=== PATIENT | female | born 1985 | race Caucasian/White ===

== ENCOUNTER → 2016-03-07 | Outpatient (CLI) | payer OTHER ==
[2016-03-07 16:12] LABS: CH 29.7; CHCM 34.5; HCT 35.7 % (34.0-46.0); HDW 2.67; HGB 12.1 gm/dL (11.4-16.0); MCH 29.2 pg (25.0-35.0); MCHC 33.8 g/dL (31.0-37.0); MCV 86.6 fL (80.0-100.0); Mean Platelet Volume 7.3; RBC 4.12 m/uL (3.80-5.40); RDW 13.1 % (11.5-15.5); WBC 9.7 k/uL (3.8-10.6)
[2016-03-07 16:41] LABS: Glucose 97 mg/dL (74-99); Non-African American GFR(MDRD) >60 (>60 ml/min/1.73 sqM)
[2016-03-07 17:15] LABS: Hepatitis B Surface Ag Index 0.07
[2016-03-08 07:34] LABS: HIV-1/HIV-2 Ab Screen NONREAC (NON REAC)
== END | disposition home or self-care (01) ==
LOC: LABWHC1 15:53
PROVIDERS: ATTEND Obstetrics & Gynecology
DX: O26.811 Pregnancy related exhaustion and fatigue, first trimester (principal); Z3A.00 Weeks of gestation of pregnancy not specified
CPT/HCPCS: 36415; 82565; 82947; 84443; 85027; 86762; 86780; 86850; 86870; 86880; 86886; 86900; 86901; 87340; 87389

== ENCOUNTER → 2016-05-29 | Outpatient (CLI) | payer OTHER ==
[2016-05-29 16:42] LABS: CH 29.3; CHCM 33.4; HDW 2.64; HGB 11.5 gm/dL (11.4-16.0); MCH 29.7 pg (25.0-35.0); MCHC 33.7 g/dL (31.0-37.0); MCV 88.2 fL (80.0-100.0); Mean Platelet Volume 7.1; RBC 3.86 m/uL (3.80-5.40); RDW 13.3 % (11.5-15.5); WBC 10.7 k/uL (3.8-10.6)
== END | disposition home or self-care (01) ==
LOC: LABWHC1 15:35
PROVIDERS: ATTEND Obstetrics & Gynecology
DX: Z34.82 Encounter for supervision of other normal pregnancy, second trimester (principal); Z3A.00 Weeks of gestation of pregnancy not specified
CPT/HCPCS: 36415; 82950; 84439; 84443; 85027

== ENCOUNTER 2016-07-18 16:33 | Outpatient (CLI) | payer OTHER | END 2016-07-18 18:00 | disposition home or self-care (01) | LOC: FBPOP 16:33 | PROVIDERS: ATTEND Obstetrics & Gynecology | DX: O26.93 Pregnancy related conditions, unspecified, third trimester (principal); Z3A.32 32 weeks gestation of pregnancy | CPT/HCPCS: 59025 ==

== ENCOUNTER 2016-07-23 11:18 | Outpatient (CLI) | payer OTHER ==
[2016-07-23 12:09] VITALS: BP 128/57; PULSE 129; RESP 20; TEMP 100.2
[2016-07-23 13:12] LABS: Appearance,Urine Cloudy (Clear); Bacteria,Urine Few /hpf; Bilirubin,Urine Negative (Negative); Glucose,Urine (UA) Negative (Negative); Ketones,Urine 1+ (Negative); Leukocyte Esterase,Urine Small (Negative); Mucus,Urine Rare /hpf; Nitrite,Urine Positive (Negative); PH, Urine 5.5 (5.0-8.0); Particle Count 57926; Protein,Urine Trace (Negative); RBC,Urine 3 /hpf (0-5); Squamous Epithelial Cell,Urine 1 /hpf (0-4); UA Billing (MACRO vs. MICRO) MICRO; Urobilinogen,Urine <2.0 mg/dL (<2.0); WBC,Urine 12 /hpf (0-5)
[2016-07-23] MEDS ORDERED: ceFAZolin 2 GM in SODIUM CHLORIDE 0.9% 100 ML IVPB STA (13:38)
[2016-07-23] MEDS ORDERED: LACTATED RINGERS 1,000 ML IV SCH (13:45)
--- NOTE | 2016-07-24 08:11 | P.MSEPDOC ---
Presenting Problems - Arrival Data Date of Arrival on Unit: 07/23/16 Time of Arrival on Unit: 11:18 Mode of Transport: Ambulatory - Complaint OB-Reason for Admission/Chief Complaint: Possible Onset of Labor Comment: back pain history of ms since 2007 Medical History - Information : 4 Para: 3 Term: 3 : 0 Abortions: Spontaneous or Elective: 0 Number of Living Children: 3 - Gestational Age Expected Date of Delivery: 09/08/16 Gestational Age by ROSIBEL (wks/days): 33 Weeks and 3 Days - History Complications: Prior , Smoker Review of Systems - Review of Systems Constitutional: No problems Breast: No problems ENT: No problems Cardiovascular: No problems Respiratory: No problems Gastrointestinal: No problems Genitourinary: No problems Musculoskeletal: Muscle weakness Neurological: No problems Skin: No problems Comment: History of MS since 2007, Surgery lt knee for torn meniscus, asthma Vital Signs - Temperature Temperature: 100.2 F Temperature Source: Skin - Pulse Brachial Pulse Rate: 129 Pulse Assessment Method: Automatic Cuff - Respirations Respiratory Rate: 20 Oxygen Delivery Method: Room Air - Blood Pressure Right Arm Blood Pressure: 128/57 Blood Pressure Mean: 80 Blood Pressure Source: Automatic Cuff Medical Screen Scoring (Pre) - Assessment Baseline FHR: 150 Heart Rate - NICHD Category: Category I (Normal) = 0 Position: N/A Station: N/A - Total Score Total Score (Pre): 0 Physician Notification (Pre) - Physician Notified Physician Notified Date: 07/23/16 Physician Notified Time: 11:45 Physician/Practitioner Notifed:: dr ferrer Spoke With: dr ferrer New Order Received: Yes (ua and c&s) Medical Screen Scoring (Post) - Cervical Exam Dilation: 0 cm = 0 Membranes: Intact - Uterine Contractions Frequency: N/A Duration: N/A Intensity: N/A - Maternal Vital Signs Maternal Temperature: N/A Maternal Blood Pressure: N/A Signs of Preeclampsia: N/A Maternal Respirations: N/A - Maternal Trauma Maternal Trauma: N/A - Assessment Heart Rate: 130 Heart Rate - NICHD Category: Category I (Normal) = 0 - Total Score Total Score (Post): 0 - Post Treatment Level of Risk Post Treatment Level of Risk: Low (0-5) Physician Notification (Post) - Physician Notified Physician Notified Date: 07/23/16 Physician Notified Time: 13:35 Physician/Practitioner Notified:: dr ferrer Spoke With: dr ferrer New Order Received: Yes - Notification Comment Comment: Dr ferrer given results of UA and iv ordered and kefzol ordered. May be discharged home after antibiotic is infused Disposition - Disposition OB Disposition: Triage, Discharge to home, Written follow up instructions reviewed Discharge Date: 07/23/16 Discharge Time: 15:30 I agree with the RN Medical Screening Exam: Yes Risk & Benefit of care provided described in d/c instruction: Yes Diagnosis: URINARY TRACT INFECTION, SITE NOT SPECIFIED Additional Diagnoses: Back pain
== END 2016-07-23 15:30 | disposition home or self-care (01) ==
LOC: FBPOP 11:18
PROVIDERS: ATTEND Obstetrics & Gynecology
DX: O23.43 Unspecified infection of urinary tract in pregnancy, third trimester (principal); Z3A.33 33 weeks gestation of pregnancy
CPT/HCPCS: 59025; 96361; 96365; 81001; 87086; G0463; J0690; 87077; 87186; 99214

== ENCOUNTER 2016-07-24 16:51 | Inpatient (IN) | payer OTHER ==
[2016-07-24] MEDS ORDERED: ACETAMINOPHEN TAB 500 MG TAB PO STA (17:24)
[2016-07-24] MEDS ORDERED: SODIUM CHLORIDE 0.9% 1,000 ML IV STA (17:24)
--- NOTE | 2016-07-24 17:30 | ED ---
Recheck HPI - General Chief Complaint: Recheck/Abnormal Lab/Rx Stated Complaint: Abd Pain-33 wk preg Time Seen by Provider: 07/24/16 17:17 Source: patient, RN notes reviewed Mode of arrival: wheelchair Limitations: no limitations - History of Present Illness Initial Comments: 31-year-old female presents emergency Department template primary care physician 's office for UTI tachycardia. Patient was seen at labor and delivery yesterday for back pain possible rule out labor. Patient states that she was up there for 4+ hours in which she had irregular contractions with no dilation. Patient states that she is A0 and currently 33 weeks . 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 Rivera. Patient states that she was given IV antibiotics yesterday and prescription for Keflex that she started today. She states that she follow up with primary care physician who sent her back here for further evaluation. Patient has not taken any acetaminophen for her fever. Patient denies any dysuria, hematuria or any flank pain with states that she does have back pain and also a reason that she was seen at upstairs yesterday. Patient has no abdominal pain no abdominal cramping. She states she feels baby moving and is very active. Patient states that she has no cold like symptoms. - Related Data Home Medications Medication Instructions Recorded Confirmed Albuterol Inhaler [Ventolin Hfa 1 - 2 puff INHALATION RT-Q6H PRN 12/08/15 Inhaler] Pnv with Ca,No.72/Iron/FA 1 tab PO DAILY 07/18/16 07/24/16 [ Plus Tablet] Cephalexin [Keflex] 500 mg PO QID 07/24/16 07/24/16 Allergies Allergy/AdvReac Type Severity Reaction Status Date / Time No Known Allergies Allergy Verified 07/24/16 18:32 Review of Systems ROS Statement: Those systems with pertinent positive or pertinent negative responses have been documented in the HPI. ROS Other: All systems not noted in ROS Statement are negative. Past Medical History Past Medical History: Asthma Additional Past Medical History / Comment(s): ms History of Any Multi-Drug Resistant Organisms: None Reported Past Surgical History: Section Past Psychological History: No Psychological Hx Reported Smoking Status: Current every day smoker Past Alcohol Use History: None Reported Past Drug Use History: None Reported General Exam Limitations: no limitations General appearance: alert, in no apparent distress Head exam: Present: atraumatic, normocephalic, normal inspection Eye exam: Present: normal appearance, PERRL, EOMI. Absent: scleral icterus, conjunctival injection, periorbital swelling Neck exam: Present: normal inspection. Absent: tenderness, meningismus, lymphadenopathy Respiratory exam: Present: normal lung sounds bilaterally. Absent: respiratory distress, wheezes, rales, rhonchi, stridor Cardiovascular Exam: Present: normal rhythm, tachycardia, normal heart sounds. Absent: systolic murmur, diastolic murmur, rubs, gallop, clicks GI/Abdominal exam: Present: soft, normal bowel sounds. Absent: distended, tenderness, guarding, rebound, rigid Back exam: Absent: CVA tenderness (R), CVA tenderness (L) Neurological exam: Present: alert Skin exam: Present: warm, dry, intact, normal color. Absent: rash Course Vital Signs 07/24/16 07/24/16 07/24/16 16:52 18:26 19:29 Temperature 101.2 F H 101.4 F H 99.0 F Pulse Rate 120 H 97 Respiratory 18 18 Rate Blood Pressure 138/65 122/57 O2 Sat by Pulse 100 97 Oximetry 07/24/16 07/24/16 20:15 21:13 Temperature 98.5 F Pulse Rate 94 96 Respiratory 18 16 Rate Blood Pressure 121/57 113/65 O2 Sat by Pulse 98 Oximetry Medical Decision Making - Lab Data Result diagrams: 07/24/16 17:36 07/24/16 17:36 Lab Results 07/24/16 07/24/16 07/24/16 Range/Units 17:36 17:36 17:36 WBC 13.9 H (3.8-10.6) k/uL RBC 4.00 (3.80-5.40) m/uL Hgb 12.0 (11.4-16.0) gm/dL Hct 35.3 (34.0-46.0) % MCV 88.3 (80.0-100.0) fL MCH 30.0 (25.0-35.0) pg MCHC 34.0 (31.0-37.0) g/dL RDW 13.6 (11.5-15.5) % Plt Count 203 (150-450) k/uL Neutrophils % 82 % Lymphocytes % 7 % Monocytes % 8 % Eosinophils % 1 % Basophils % 0 % Neutrophils # 11.5 H (1.3-7.7) k/uL Lymphocytes # 1.0 (1.0-4.8) k/uL Monocytes # 1.2 H (0-1.0) k/uL Eosinophils # 0.1 (0-0.7) k/uL Basophils # 0.1 (0-0.2) k/uL Sodium 135 L (137-145) mmol/L Potassium 3.9 (3.5-5.1) mmol/L Chloride 104 (98-107) mmol/L Carbon Dioxide 21 L (22-30) mmol/L Anion Gap 10 mmol/L BUN 5 L (7-17) mg/dL Creatinine 0.68 (0.52-1.04) mg/dL Est GFR (MDRD) Af Amer >60 (>60 ml/min/1.73 sqM) Est GFR (MDRD) Non-Af >60 (>60 ml/min/1.73 sqM) Glucose 102 H (74-99) mg/dL Plasma Lactic Acid Brian 0.8 (0.7-2.0) mmol/L Calcium 9.2 (8.4-10.2) mg/dL Total Bilirubin 0.7 (0.2-1.3) mg/dL AST 24 (14-36) U/L ALT 30 (9-52) U/L Alkaline Phosphatase 114 (38-126) U/L Total Protein 7.1 (6.3-8.2) g/dL Albumin 3.7 (3.5-5.0) g/dL Amylase 55 (30-110) U/L Lipase 36 (23-300) U/L Urine Color Urine Appearance (Clear) Urine pH (5.0-8.0) Ur Specific [place] (1.001-1.035) Urine Protein (Negative) Urine Glucose (UA) (Negative) Urine Ketones (Negative) Urine Blood (Negative) Urine Nitrite (Negative) Urine Bilirubin (Negative) Urine Urobilinogen (<2.0) mg/dL Ur Leukocyte Esterase (Negative) Urine RBC (0-5) /hpf Urine WBC (0-5) /hpf Ur Squamous Epith Cells (0-4) /hpf Urine Bacteria (None) /hpf Urine Mucus (None) /hpf 07/24/16 Range/Units 19:25 WBC (3.8-10.6) k/uL RBC (3.80-5.40) m/uL Hgb (11.4-16.0) gm/dL Hct (34.0-46.0) % MCV (80.0-100.0) fL MCH (25.0-35.0) pg MCHC (31.0-37.0) g/dL RDW (11.5-15.5) % Plt Count (150-450) k/uL Neutrophils % % Lymphocytes % % Monocytes % % Eosinophils % % Basophils % % Neutrophils # (1.3-7.7) k/uL Lymphocytes # (1.0-4.8) k/uL Monocytes # (0-1.0) k/uL Eosinophils # (0-0.7) k/uL Basophils # (0-0.2) k/uL Sodium (137-145) mmol/L Potassium (3.5-5.1) mmol/L Chloride (98-107) mmol/L Carbon Dioxide (22-30) mmol/L Anion Gap mmol/L BUN (7-17) mg/dL Creatinine (0.52-1.04) mg/dL Est GFR (MDRD) Af Amer (>60 ml/min/1.73 sqM) Est GFR (MDRD) Non-Af (>60 ml/min/1.73 sqM) Glucose (74-99) mg/dL Plasma Lactic Acid Brian (0.7-2.0) mmol/L Calcium (8.4-10.2) mg/dL Total Bilirubin (0.2-1.3) mg/dL AST (14-36) U/L ALT (9-52) U/L Alkaline Phosphatase (38-126) U/L Total Protein (6.3-8.2) g/dL Albumin (3.5-5.0) g/dL Amylase (30-110) U/L Lipase (23-300) U/L Urine Color Yellow Urine Appearance Clear (Clear) Urine pH 6.5 (5.0-8.0) Ur Specific [place] 1.006 (1.001-1.035) Urine Protein Trace H (Negative) Urine Glucose (UA) Negative (Negative) Urine Ketones 2+ H (Negative) Urine Blood Trace H (Negative) Urine Nitrite Negative (Negative) Urine Bilirubin Negative (Negative) Urine Urobilinogen <2.0 (<2.0) mg/dL Ur Leukocyte Esterase Negative (Negative) Urine RBC 2 (0-5) /hpf Urine WBC 2 (0-5) /hpf Ur Squamous Epith Cells 2 (0-4) /hpf Urine Bacteria Rare H (None) /hpf Urine Mucus Rare H (None) /hpf Disposition Clinical Impression: Pyelonephritis Disposition: ADMITTED IP TO THIS HOSP Condition: Stable Referrals: Seven Mcmanus MD [Primary Care Provider] - 1-2 days
[2016-07-24 18:07] LABS: ALT 30 U/L (9-52); AST 24 U/L (14-36); Alkaline Phosphatase 114 U/L (38-126); Amylase 55 U/L (30-110); Anion Gap 10 mmol/L; Blood Urea Nitrogen 5 mg/dL (7-17); Calcium 9.2 mg/dL (8.4-10.2); Carbon Dioxide 21 mmol/L (22-30); Chloride 104 mmol/L (98-107); Glucose 102 mg/dL (74-99); Non-African American GFR(MDRD) >60 (>60 ml/min/1.73 sqM); Potassium 3.9 mmol/L (3.5-5.1); Sodium 135 mmol/L (137-145); Total Bilirubin 0.7 mg/dL (0.2-1.3); Total Protein 7.1 g/dL (6.3-8.2)
[2016-07-24 18:19] LABS: Basophils # (A) 0.1 k/uL (0-0.2); Basophils % (A) 0 %; CH 29.9; CHCM 34.1; Eosinophils # (A) 0.1 k/uL (0-0.7); Eosinophils % (A) 1 %; HCT 35.3 % (34.0-46.0); HDW 2.64; Luc # (Auto) 0.23; Luc % (Auto) 2; Lymphocytes % (A) 7 %; MCV 88.3 fL (80.0-100.0); Mean Platelet Volume 7.2; Monocytes # (A) 1.2 k/uL (0-1.0); Monocytes % (A) 8 %; Neutrophils # (A) 11.5 k/uL (1.3-7.7); Neutrophils % (A) 82 %; RDW 13.6 % (11.5-15.5); WBC 13.9 k/uL (3.8-10.6)
--- NOTE | 2016-07-24 18:30 | US ---
EXAMINATION TYPE: US kidneys/renal and bladder DATE OF EXAM: 07/24/2016 6:17 PM COMPARISON: NONE CLINICAL HISTORY: Pain. EC patient with bilateral low back pain, right side > left; prior renal stone ; 33 weeks ; has MS EXAM MEASUREMENTS: Right Kidney: 8.6 x 2.9 x 3.4 cm Left Kidney: 14.8 x 7.0 x 7.9 cm Post Void Residual Volume: not assessed on EC patient as EC Department needs urinalysis Right Kidney: smaller than right; multiple small cysts in upper pole with largest = 0.8 x 0.7 x 0.5cm ; hyperechoic focus with shadowing in lower pole suggests renal stone = 0.7 x 0.5 x 0.4cm; possible s maller stone in upper pole = 0.2 x 0.3 x 0.2cm Left Kidney: No hydronephrosis or masses seen Bladder: is being compressed by uterus, but no masses seen. Bilateral Jets seen: No . IMPRESSION: Left kidney shows no sign of mass or obstruction. Right kidney is smaller with evidence of some corti jade thinning that could relate to chronic pyelonephritis. There is evidence of small right renal leif ical cysts and nonobstructing calculi.
[2016-07-24] MEDS ORDERED: SODIUM CHLORIDE 0.9% 1,000 ML IV ONE (19:25)
[2016-07-24 19:51] LABS: Appearance,Urine Clear (Clear); Bacteria,Urine Rare /hpf; Bilirubin,Urine Negative (Negative); Glucose,Urine (UA) Negative (Negative); Ketones,Urine 2+ (Negative); Leukocyte Esterase,Urine Negative (Negative); Mucus,Urine Rare /hpf; Nitrite,Urine Negative (Negative); PH, Urine 6.5 (5.0-8.0); Particle Count 1173; Protein,Urine Trace (Negative); RBC,Urine 2 /hpf (0-5); Specific Gravity,Urine 1.006 (1.001-1.035); Squamous Epithelial Cell,Urine 2 /hpf (0-4); UA Billing (MACRO vs. MICRO) MICRO; Urobilinogen,Urine <2.0 mg/dL (<2.0); WBC,Urine 2 /hpf (0-5)
[2016-07-24] MEDS ORDERED: NALOXONE 0.4 MG/ML 1 ML VIAL IV PRN (21:19)
[2016-07-24] MEDS: SODIUM CHLORIDE 0.9% 1,000 ML IV SCH (21:35)
[2016-07-24 22:48] VITALS: BMI 36.0
[2016-07-25] MEDS: ACETAMINOPHEN TAB 325 MG TAB PO PRN ×2 (06:28→16:15)
[2016-07-25] MEDS: SODIUM CHLORIDE 0.9% 1,000 ML IV SCH ×2 (08:43→23:10)
--- NOTE | 2016-07-25 11:07 | HP ---
DATE OF ADMISSION: This is a 31-year-old white female, a 33-week with a history of MS who came to my office post emergency room visit to [place]. They told her she had a urinary tract infection but they were not sure she had nonspecific right flank pain and was placed on Keflex while in the office, her heart rate was 110, 115, she was feverish with a temperature of 101. At this time contacted emergency room here for evaluation, they saw her, an ultrasound was completed, which shows questionable pyelonephritis on the right. Temperature of 100 with a 13.9 WBC count at which time we decided to place her in the hospital on IV Rocephin. PAST MEDICAL HISTORY: No known allergies. Her medications include that of: 1. Albuterol inhaler 2 puffs 4 times a day p.r.n. 2. She is on a vitamin. 3. She was on Keflex before admission 500 mg 4 times a day. Past medical history includes that of asthma, MS which she is being taking care of by Dr. Ricardo burton [facility]. Previously she had been on Avelox injections before the . She also has a past surgical history of . She is a 3, para 3. Current smoker of less than 5 cigarettes a day. She is . 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 She has no use and no drug history. She has no history of alcohol use. FAMILY HISTORY: I do take care of her mother and her brother, she has a brother who has a seizure disorder. She has a mother with MS, both of which are stable at this period of time. REVIEW OF SYSTEMS: CARDIOPULMONARY: She is having no shortness of breath or chest pain, no orthopnea, no paroxysmal nocturnal dyspnea. GI: No hematemesis, melena, hematochezia. No nausea or vomiting. No constipation. No diarrhea. : She has had some burning on urination and has had frequency. Also some upper right back pain. NEUROMUSCULAR: She is having some progressive weakness in the legs, which has worsened since coming off her Avelox with her MS. She has a long-standing history of some decrease in strength in her arms. She is mobile, able to walk. She no problem with gait. Skin is soft, has been warm, intact. There is no color absence, no presence of rash. NEUROLOGICAL: She is alert, denies depression. She denies any type of severe anxiety. VITAL SIGNS: Blood pressure is 119/68, heart rates is in the 80s, respiratory rate is 20, temperature is 97.8. EYES: Pupils are equal, round, react to light and accommodation. ENT: Shows a dry mouth. NECK: Supple. Midline trachea. No carotid bruits. CHEST: Essentially clear to auscultation with absolutely no wheezes no rhonchi. HEART: Sinus rhythm. No murmur. Patient is approximately 33, 34 weeks . Abdominal distention with is seen. She has no lateral tenderness. She does have some tenderness to palpation in the right back flank area, which might be indicative of a positive Blair's sign. Lab work showed a WBC of 13.9 with a shift to the left. Neutrophils of 11.5, sodium 135, potassium 3.9. Creatinine is stable 0.68, with a BUN of 5. Amylase, lipase were negative. Albumin is stable at 3.9. Urinalysis shows that of infection with WBCs throughout and some bacteria. Specific gravity is stable at 1.006 with a pH of 7.5. ASSESSMENT: 1. Probable acute pyelonephritis, urinary tract infection wait for identification of organism. 2. A 33 week . 3. History of multiple sclerosis. PLAN: Dr. Campbell, her [employer] has been notified, started on IV fluids along with Rocephin 1 gm q.24 hours. Please refer to my orders. Prognosis is guarded.
--- NOTE | 2016-07-25 12:44 | P.OBCN ---
History of Present Illness Consult date: 07/25/16 Requesting physician: Seven Mcmanus Chief complaint: Pyelonephritis at 33 weeks gestation History of present illness: Patient is a 31-year-old female 4 para 3 well known to me through our practice. She is noted to have suspected pyelonephritis and likely kidney stones based on x-ray. At this time in this seen with her she is actually feeling well she is had no fevers today she is ambulating, voiding, and she is tolerating her diet. We moved her to labor and delivery so that we may monitor the fetus. She is noted to have been seen in labor and delivery on 521 and was diagnosed with a urinary tract infection at that time. She was given IV antibiotics of 1 dose and sent home with a prescription for Keflex. Over the next 2 days she progressed with high temperature and began having flank pain and was seen by primary care doctor who admitted her for pyelonephritis. She's been switched Rocephin IV and seems to responding well. From an obstetrical standpoint she needs intermittent monitoring and continued IV antibiotics. Once afebrile for 24 hours can consider discharged home with extended antibiotics by mouth. She voices no other significant problems at this time and overall she is actually feeling well. On physical exam her vital signs are stable and she is currently afebrile. Heart regular, lungs clear, extremities without pain. She does have some residual back tenderness but overall she is noting that that is diminishing. Assessment intrauterine at 33 weeks. Pyelonephritis Plan continue IV antibiotics Past Medical History Past Medical History: Asthma Additional Past Medical History / Comment(s): ms History of Any Multi-Drug Resistant Organisms: None Reported Past Surgical History: Section Additional Past Surgical History / Comment(s): Left Knee Arthroscopic surgery Past Anesthesia/Blood Transfusion Reactions: No Reported Reaction Past Psychological History: No Psychological Hx Reported Smoking Status: Current every day smoker Past Alcohol Use History: None Reported Past Drug Use History: None Reported - Past Family History Mother Family Medical History: Diabetes Mellitus, Fibromyalgia Additional Family Medical History / Comment(s): MS, breast cancer and a tumor in throat Father Additional Family Medical History / Comment(s): Glaucoma Medications and Allergies Home Medications Medication Instructions Recorded Confirmed Type Albuterol Inhaler [Ventolin Hfa 1 - 2 puff INHALATION RT-Q6H PRN 12/08/15 History Inhaler] Pnv,Calcium 72/Iron/Folic Acid 1 tab PO DAILY 07/18/16 07/24/16 History [ Plus Tablet] Cephalexin [Keflex] 500 mg PO QID 07/24/16 07/24/16 History Allergies Allergy/AdvReac Type Severity Reaction Status Date / Time No Known Allergies Allergy Verified 07/24/16 18:32 Exam Osteopathic Statement: *. No significant issues noted on an osteopathic structural exam other than those noted in the History and Physical/Consult. - Vital Signs Vital signs: Vital Signs Temp Pulse Pulse Pulse Resp BP BP 07/25/16 09:50 96.5 F L 98 18 114/60 07/25/16 09:11 92 07/25/16 07:00 97.2 F L 94 18 103/61 07/24/16 23:21 98 20 07/24/16 22:24 97 F L 98 20 119/68 07/24/16 21:39 98.2 F 92 18 118/55 07/24/16 21:13 96 16 113/65 07/24/16 20:15 98.5 F 94 18 121/57 07/24/16 19:29 99.0 F 97 18 122/57 07/24/16 18:26 101.4 F H 07/24/16 16:52 101.2 F H 120 H 18 138/65 Pulse Ox 07/25/16 09:50 97 07/25/16 09:11 07/25/16 07:00 97 07/24/16 23:21 07/24/16 22:24 98 07/24/16 21:39 98 07/24/16 21:13 98 07/24/16 20:15 07/24/16 19:29 97 07/24/16 18:26 07/24/16 16:52 100 Intake and Output 07/24/16 07/25/16 07/25/16 22:59 06:59 14:59 Intake Total 230 540 Output Total 1050 701 Balance 230 -510 -701 Intake: Oral 230 540 Output: Urine 1050 701 Other: Voiding Method Toilet Toilet # Voids 400 Weight 102.8 kg 101.151 kg Patient Weight 07/26/16 06:59 Weight 101.151 kg Results Result Diagrams: 07/24/16 17:36 07/24/16 17:36 Abnormal Lab Results - Last 24 Hours (Table) 07/24/16 07/24/16 07/24/16 Range/Units 17:36 17:36 19:25 WBC 13.9 H (3.8-10.6) k/uL Neutrophils # 11.5 H (1.3-7.7) k/uL Monocytes # 1.2 H (0-1.0) k/uL Sodium 135 L (137-145) mmol/L Carbon Dioxide 21 L (22-30) mmol/L BUN 5 L (7-17) mg/dL Glucose 102 H (74-99) mg/dL Urine Protein Trace H (Negative) Urine Ketones 2+ H (Negative) Urine Blood Trace H (Negative) Urine Bacteria Rare H (None) /hpf Urine Mucus Rare H (None) /hpf Microbiology - Last 24 Hours (Table) 07/24/16 19:25 Urine Culture - Preliminary Urine,Voided
--- NOTE | 2016-07-26 09:17 | P.PN ---
Progress Note - Text Overall Marjan is doing very well. She is been afebrile now for greater than 24 hours. She is ambulating, voiding and she is tolerating her diet. She rates pains 2 and she would like to go home. The final culture is done and is E. coli on the specimen however the sensitivities are not back. I did speak with the lab for the sensitivities were sent and they said that there was some type of problem potentially last couple days it is kept him from completing the sensitivities. Her vital signs again are stable and she is afebrile. Heart regular, lungs clear, extremities without pain. Baby is had good heart tones. Realistically other than waiting for the sensitivity we are not providing much care other than the IV antibiotics and likely she can be switched to by mouth antibiotics as soon as the sensitivities returned and be discharged home.
[2016-07-26 09:49] LABS: Basophils % (A) 0 %; CH 29.6; CHCM 33.1; Eosinophils # (A) 0.2 k/uL (0-0.7); Eosinophils % (A) 2 %; HCT 31.8 % (34.0-46.0); HDW 2.88; HGB 10.5 gm/dL (11.4-16.0); Luc # (Auto) 0.24; Luc % (Auto) 3; Lymphocytes # (A) 1.2 k/uL (1.0-4.8); Lymphocytes % (A) 15 %; MCH 29.8 pg (25.0-35.0); MCHC 33.2 g/dL (31.0-37.0); Mean Platelet Volume 7.3; Monocytes # (A) 0.6 k/uL (0-1.0); Monocytes % (A) 7 %; Neutrophils # (A) 5.8 k/uL (1.3-7.7); Neutrophils % (A) 72 %; RBC 3.53 m/uL (3.80-5.40); RDW 13.6 % (11.5-15.5); WBC 8.1 k/uL (3.8-10.6); WBC (Perox) 8.89
[2016-07-26] MEDS ORDERED: PRENATAL VIT-IRON-FOLIC ACID 1 EACH CAP PO SCH (12:00)
--- NOTE | 2016-07-26 14:30 | P.PN ---
Subjective Principal diagnosis: Pyelonephritis Patient is a 31-year-old white female, patient of Dr. Mcmanus in the outpatient setting, admitted with evidence of sepsis suspect secondary to pyelonephritis, failed outpatient treatment. Patient is evaluated at bedside. Patient reports improvement in left sided flank pain currently rated 2 out of 10. Denies chills , fevers, nausea, vomiting, shortness of breath, chest pain, or abdominal pain. Patient is urinating without difficulty. Patient reports good appetite. T- max 99.1 and last 24 hours. Hemodynamically stable. Urine culture positive for E. coli. Objective - Vital Signs Vital signs: Vital Signs Temp 97.6 F 07/26/16 07:00 Pulse 87 07/26/16 07:00 Resp 18 07/26/16 07:00 BP 112/55 07/26/16 07:00 Pulse Ox 97 07/26/16 07:00 Intake & Output 07/25/16 07/26/16 07/26/16 18:59 06:59 18:59 Intake Total 900 600 Output Total 1801 500 Balance -1801 400 600 Weight 101.151 kg Intake: Intake, IV Titration 900 Amount Sodium Chloride 0.9% 1, 900 000 ml @ 75 mls/hr IV . [id number] [facility] Rx#:[id number] Oral 600 Output: Urine 1801 500 Other: Voiding Method Toilet Toilet # Voids 1 2 1 - Exam GENERAL: Pt awake and alert, well-appearing, well-nourished, and in no acute distress. HEAD: Atraumatic, normocephalic. EYES: Pupils equal, round, and reactive to light, sclera anicteric, conjunctiva are normal. ENT: Moist mucous membranes. NECK:Supple. LUNGS: Breath sounds clear to auscultation bilaterally. No wheezes, rales, or rhonchi. HEART: Heart S1, S2, no S3 or S4. Regular rate and rhythm. No murmurs, rubs or gallops. Back: Mild right-sided CVA tenderness. EXTREMITIES: 2+ peripheral pulses. No edema. No calf tenderness. NEUROLOGICAL: Pt oriented x 3. No focal deficits noted. Strength and sensation grossly intact. PSYCH: Normal mood, normal affect. SKIN: Warm, dry, intact. Normal turgor. No rashes or lesions. - Labs CBC & Chem 7: 07/26/16 09:00 07/24/16 17:36 Labs: Abnormal Lab Results - Last 24 Hours (Table) 07/26/16 Range/Units 09:00 RBC 3.53 L (3.80-5.40) m/uL Hgb 10.5 L (11.4-16.0) gm/dL Hct 31.8 L (34.0-46.0) % Microbiology - Last 24 Hours (Table) 07/24/16 19:25 Urine Culture - Final Urine,Voided 07/24/16 17:36 Blood Culture - Preliminary Blood No Growth after 24 hours Assessment and Plan Plan: Impression: 1. Sepsis suspect secondary to acute pyelonephritis with urine cultures positive for E. coli. 2. Nephrolithiasis. 3. 33 week . 4. History of multiple sclerosis. 5. Asthma, mild. 6. Nicotine dependence. Plan: Continue IV antibiotics. Continue IV hydration. Continue supportive treatment and pain management. Smoking cessation encouraged. Possibly discharge home later this afternoon or tomorrow. The above impression and plan have been discussed and directed by Dr. Mcmanus. Joaquin YEPEZ acting as scribe for Dr. Mcmanus.
[2016-07-26] MEDS: SODIUM CHLORIDE 0.9% 1,000 ML IV SCH (14:33)
[2016-07-27 00:06] VITALS: BP 115/57; PULSE 79; RESP 16; TEMP 97.8
[2016-07-27] MEDS: SODIUM CHLORIDE 0.9% 1,000 ML IV SCH (03:08)
--- NOTE | 2016-07-27 08:26 | P.DS ---
Providers Date of admission: 07/24/16 21:44 Expected date of discharge: 07/27/16 Attending physician: Seven Mcmanus Consults: 07/24/16 21:19 Consult Physician Stat Consulting Provider: Eulogio Campbell Consult Reason/Comments: Do you want consulting provider notified?: Yes Primary care physician: Seven Mcmanus Hospital Course: Patient is a 31-year-old white female, 33 weeks , with medical history significant for MS admitted to the hospital for sepsis secondary to urinary tract infection, failed outpatient treatment. Patient had an ultrasound in the emergency department with evidence of nephrolithiasis and questionable pyelonephritis on the right. Patient was admitted for IV antibiotics, IV fluids , and pain management. Consult was requested for Dr. Campbell, BUILDING DRAFTING OFFICER service. Urine culture positive for E. coli. Patient improved during her hospital stay and was felt stable for to discharge to home finishing ceftin 500 mg PO BID for 7 days. Patient provided instructions to follow-up with Dr. Mcmanus and Dr. Campbell in the outpatient setting. Discharge diagnoses: 1. Sepsis suspect secondary to acute pyelonephritis with urine cultures positive for E. coli. 2. Nephrolithiasis. 3. 33 week . 4. History of multiple sclerosis. 5. Asthma, mild. 6. Nicotine dependence. The above impression and plan have been discussed and directed by Dr. Mcmanus. Joaquin YEPEZ acting as scribe for Dr. Mcmanus. Pertinent Studies: Abdomen/bladder ultrasound Patient Condition at Discharge: Good Plan - Discharge Summary New Discharge Prescriptions: Cefuroxime Axetil [Ceftin] 500 mg PO BID #14 tab Discharge Medication List Albuterol Inhaler [Ventolin Hfa Inhaler] 1 - 2 puff INHALATION RT-Q6H PRN [History] Pnv,Calcium 72/Iron/Folic Acid [ Plus Tablet] 1 tab PO DAILY 07/18/16 [ History] Acetaminophen Tab [Tylenol] 650 mg PO Q6HR PRN tab 07/26/16 [Rx] Cefuroxime Axetil [Ceftin] 500 mg PO BID #14 tab 07/26/16 [Rx] Follow up Appointment(s)/Referral(s): Seven Mcmanus MD [Primary Care Provider] - 1 Week Eulogio Campbell DO [Doctor of Osteopathic Medicine] - 1 Week Patient Instructions/Handouts: Urinary Tract Infection in Women (DC) Discharge Disposition: HOME SELF-CARE
== END 2016-07-27 10:16 | disposition home or self-care (01) | DRG 872 ==
LOC: EC 16:51 → 6PED 21:44 → 4FBP 07-25 09:40
PROVIDERS: ADMIT Family Medicine; ATTEND Family Medicine
DX: A41.9 Sepsis, unspecified organism (principal); O99.413 Diseases of the circulatory system complicating pregnancy, third trimester; O23.03 Infections of kidney in pregnancy, third trimester; O98.813 Other maternal infectious and parasitic diseases complicating pregnancy, third trimester; O26.833 Pregnancy related renal disease, third trimester; N10 Acute pyelonephritis; B96.20 Unspecified Escherichia coli [E. coli] as the cause of diseases classified elsewhere; O99.513 Diseases of the respiratory system complicating pregnancy, third trimester; O99.353 Diseases of the nervous system complicating pregnancy, third trimester; N20.0 Calculus of kidney; O99.333 Smoking (tobacco) complicating pregnancy, third trimester; F17.210 Nicotine dependence, cigarettes, uncomplicated; N85.8 Other specified noninflammatory disorders of uterus; O34.219 Maternal care for unspecified type scar from previous cesarean delivery; G35 Multiple sclerosis; J45.909 Unspecified asthma, uncomplicated; R00.0 Tachycardia, unspecified; Z80.3 Family history of malignant neoplasm of breast; Z71.6 Tobacco abuse counseling; Z83.3 Family history of diabetes mellitus; Z3A.33 33 weeks gestation of pregnancy; Z82.0 Family history of epilepsy and other diseases of the nervous system; Z63.6 Dependent relative needing care at home; Z79.899 Other long term (current) drug therapy
CPT/HCPCS: 36415; 76770; 80053; 81001; 82150; 83605; 83690; 85025; 87040; 87086

== ENCOUNTER 2016-09-06 10:03 | Inpatient (IN) | payer OTHER ==
[2016-09-04 12:17] VITALS: BMI 34.7
[2016-09-06] MEDS ORDERED: LACTATED RINGERS 1,000 ML IV ONE (10:41)
[2016-09-06] MEDS ORDERED: CITRIC ACID-SODIUM CITRATE 15 ML CUP PO ONE (10:41)
[2016-09-06] MEDS: LACTATED RINGERS 1,000 ML IV SCH ×3 (10:55→19:59)
[2016-09-06 11:08] LABS: Basophils % (A) 0 %; CH 29.4; CHCM 34.4; Eosinophils # (A) 0.1 k/uL (0-0.7); Eosinophils % (A) 1 %; HDW 2.85; HGB 12.8 gm/dL (11.4-16.0); Luc # (Auto) 0.19; Luc % (Auto) 2; Lymphocytes # (A) 1.9 k/uL (1.0-4.8); Lymphocytes % (A) 16 %; MCH 30.5 pg (25.0-35.0); MCHC 35.5 g/dL (31.0-37.0); Mean Platelet Volume 7.4; Monocytes # (A) 0.6 k/uL (0-1.0); Monocytes % (A) 5 %; Neutrophils # (A) 8.7 k/uL (1.3-7.7); Neutrophils % (A) 76 %; RBC 4.19 m/uL (3.80-5.40); RDW 14.1 % (11.5-15.5); WBC 11.5 k/uL (3.8-10.6); WBC (Perox) 11.71
[2016-09-06] MEDS: ceFAZolin 2 GM in SODIUM CHLORIDE 0.9% 100 ML IVPB ONE ×2 (11:32→13:06)
[2016-09-06] MEDS ORDERED: NALOXONE 0.4 MG/ML 1 ML VIAL IV PRN (14:04)
[2016-09-06] MEDS ORDERED: METOCLOPRAMIDE 5 MG/ML 2 ML VIAL IVP PRN (14:04)
[2016-09-06] MEDS ORDERED: KETOROLAC 30 MG/ML 1 ML VIAL IVP PRN (14:04)
[2016-09-06] MEDS ORDERED: diphenhydrAMINE 25 MG CAP PO PRN (14:04)
[2016-09-06] MEDS ORDERED: ACETAMINOPHEN TAB 325 MG TAB PO PRN (14:04)
[2016-09-06] MEDS ORDERED: SIMETHICONE 80 MG CHEWABLE PO PRN (14:04)
[2016-09-06] MEDS ORDERED: diphenhydrAMINE 50 MG CAP PO PRN (14:04)
[2016-09-06] MEDS ORDERED: diphenhydrAMINE 50 MG/ML 1 ML VIAL IVP PRN ×2 (14:04)
[2016-09-06] MEDS ORDERED: Acetaminophen-Codeine 300-30mg TAB PO PRN (14:04)
[2016-09-06] MEDS ORDERED: ONDANSETRON 4 MG/2 ML VIAL IVP PRN (14:04)
[2016-09-06] MEDS ORDERED: IBUPROFEN 600 MG TAB PO PRN (14:04)
--- NOTE | 2016-09-06 14:11 | P.HPOB ---
History of Present Illness H&P Date: 09/06/16 Chief Complaint: Intrauterine at 39 weeks gestation: Previous section Patient is a 31-year-old with 3 prior surgery and sections who is here for repeat. She does not desire to have her tubes tied however. Her Precis course has been, K by a positive antibody screen with anti-JKb in titer is less than 1. Repeat test and verified stability of titers. Otherwise her course was unremarkable. She did pass her 1 hour Glucola screen and her thyroid studies even on repeat were normal. Pertinent labs did include A+ blood type. Rubella was immune. Hepatitis B surface antigen/RPR were both negative. She did pass her 1 hour Glucola screen. On physical exam this is a well-developed well-nourished female whose HEENT is unremarkable. Heart regular , lungs clear, extremities without pain. Abdominal exam is unremarkable other than gravid uterus. heart tones prior to surgery 130s and reactive. Assessment intrauterine with prior sections plan repeat low transverse section Past Medical History Past Medical History: Asthma, GERD/Reflux, Musculoskeletal Disorder Additional Past Medical History / Comment(s): HAS MS. GERD DURING . HX POSS KIDNEY STONE. CURRENT UTI, ON PO AB RX. VERSICOLOR SKIN ON BACK AND ARMS. W/ REPEAT C-S PLANNED 09/06/16 History of Any Multi-Drug Resistant Organisms: None Reported Past Surgical History: Section, Orthopedic Surgery Additional Past Surgical History / Comment(s): Left Knee Arthroscopic surgery Past Anesthesia/Blood Transfusion Reactions: No Reported Reaction Past Psychological History: No Psychological Hx Reported Smoking Status: Current every day smoker Past Alcohol Use History: None Reported Past Drug Use History: None Reported - Past Family History Mother Family Medical History: Cancer Father Additional Family Medical History / Comment(s): Glaucoma Medications and Allergies Home Medications Medication Instructions Recorded Confirmed Type Albuterol Inhaler [Ventolin Hfa 1 - 2 puff INHALATION RT-Q6H PRN 12/08/15 History Inhaler] Pnv,Calcium 72/Iron/Folic Acid 1 tab PO DAILY 07/18/16 09/06/16 History [ Plus Tablet] Cephalexin [Keflex] 500 mg PO QID 09/04/16 09/06/16 History Allergies Allergy/AdvReac Type Severity Reaction Status Date / Time No Known Allergies Allergy Verified 09/06/16 10:40 Exam Osteopathic Statement: *. No significant issues noted on an osteopathic structural exam other than those noted in the History and Physical/Consult. - Vital Signs Vital signs: Vital Signs Temp Pulse Resp BP Pulse Ox 09/06/16 10:44 98.8 F 93 19 115/72 98 Intake and Output 09/05/16 09/06/16 09/06/16 22:59 06:59 14:59 Other: Weight 99.79 kg Patient Weight 09/07/16 06:59 Weight 99.79 kg Results Result Diagrams: 09/06/16 10:54 Abnormal Lab Results - Last 24 Hours (Table) 09/06/16 Range/Units 10:54 WBC 11.5 H (3.8-10.6) k/uL Neutrophils # 8.7 H (1.3-7.7) k/uL
--- NOTE | 2016-09-06 14:14 | P.OP ---
Date of Procedure: 09/06/16 Preoperative Diagnosis: Intrauterine at term: Previous sections Postoperative Diagnosis: Same Procedure(s) Performed: Repeat low transverse section Implants: Anesthesia: spinal Surgeon: Eulogio Campbell Mill Stenciler #1: Cindy Mcdonald Estimated Blood Loss (ml): 600 IV fluids (ml): 1,200 Urine output (ml): 100 Pathology: other (Placenta) Condition: stable Disposition: floor Indications for Procedure: Operative Findings: Viable male scores of 9 and 9 at one and 5 minutes and a weight of 7 lbs. 15 oz. Description of Procedure: Patient was taken to the operating suite where a spinal anesthetic was found be adequate. She was prepped and draped in normal sterile fashion placed in dorsal supine position with leftward tilt. Initially a Pfannenstiel skin incision was made and this incision was carried through to underlying layer of the fashion with second knife. Fascia was then nicked in the midline and this opening was extended laterally with Goldberg scissors. Superior and inferior aspect of this incision were then grasped tented up and bluntly and sharply dissected off the rectus muscles. Rectus muscles were then divided midline and blunt dissection was easily accomplished through what [place] to a window RE in the peritoneum. Scarring of the omentum to the anterior abdominal wall was noted and using cautery was lysed free from left-hand side to allow access to the uterus. Bladder blade was then placed and the bladder flap was identified. Was elevated entered sharply with Metzenbaum scissors carried across face the uterus with Metzenbaum scissors. Knife was then used to incise uterus this opening was extended bluntly and once this was created head was then H medically delivered and mouth nares were bulb suctioned. Anterior and posterior shoulders were delivered with gentle downward and upward traction followed by the remainder the baby. Umbilical cord was then clamped cut usual fashion an nursery personnel was present to assume care. Placenta was then delivered intact and Pitocin was added to the IV. Uterus was then exteriorized cleared of clots and debris and closed in 1 layer with 0 Vicryl suture. Once excellent hemostasis was obtained 3-0 Vicryl was used to reapproximate the bladder flap and blood and debris was suctioned from the posterior cul-de-sac. Uterus was then reinserted into the abdomen and the gutters were cleared. Peritoneal layer was then closed 0 Vicryl suture fascial layer was closed Lobac suture and the skin was then closed with 3-0 Vicryl on a Deejay needle. Sponge, lap, needle counts were all correct 2 and patient was then taken to the recovery room in stable and satisfactory condition.
[2016-09-06] MEDS: SENNOSIDES-DOCUSATE SODIUM 1 EACH TAB PO SCH (19:58)
[2016-09-06] MEDS ORDERED: ZOLPIDEM 5 MG TAB PO PRN (21:00)
[2016-09-07 06:42] LABS: Basophils % (A) 0 %; CH 29.4; CHCM 33.7; Eosinophils # (A) 0.1 k/uL (0-0.7); Eosinophils % (A) 2 %; HCT 31.2 % (34.0-46.0); HDW 2.77; HGB 10.6 gm/dL (11.4-16.0); Luc # (Auto) 0.15; Luc % (Auto) 2; Lymphocytes # (A) 1.3 k/uL (1.0-4.8); Lymphocytes % (A) 14 %; MCH 29.9 pg (25.0-35.0); MCHC 34.1 g/dL (31.0-37.0); MCV 87.7 fL (80.0-100.0); Mean Platelet Volume 7.8; Monocytes # (A) 0.6 k/uL (0-1.0); Monocytes % (A) 7 %; Neutrophils # (A) 7.1 k/uL (1.3-7.7); Neutrophils % (A) 76 %; RBC 3.56 m/uL (3.80-5.40); RDW 14.2 % (11.5-15.5); WBC 9.3 k/uL (3.8-10.6); WBC (Perox) 9.75
[2016-09-07] MEDS: SENNOSIDES-DOCUSATE SODIUM 1 EACH TAB PO SCH ×2 (08:39→20:37)
--- NOTE | 2016-09-07 08:40 | P.PN ---
Progress Note - Text Date: 09/07/2016 Time: 702 The patient is status post section Vital signs stable VAS: 0-10 Patient has no complaints of pain. The patient incurred some minimal itching yesterday, this itching is now subsiding. Pain meds to be managed by service.
--- NOTE | 2016-09-07 10:27 | P.PNOBGPC ---
Subjective - Subjective Principal diagnosis: Postop day 1 Interval history: Patient doing very well postop day 1. She is involuting, voiding and she is tolerating her diet. Pain is well-controlled this time. Patient reports: Reports appetite normal, Reports voiding normally, Reports pain well controlled, Reports ambulating normally : doing well Objective - Vital Signs Latest vital signs: Vital Signs Temp Pulse Resp BP Pulse Ox 09/06/16 23:41 98.1 F 85 13 100/70 09/06/16 20:00 98.0 F 84 15 113/61 09/06/16 16:11 97.8 F 86 16 112/56 98 09/06/16 15:41 98 18 116/64 09/06/16 15:11 87 16 120/58 98 09/06/16 14:56 95 17 118/60 98 09/06/16 14:41 95 19 118/60 98 09/06/16 14:26 100 18 112/57 97 09/06/16 14:24 98.1 F 88 17 119/61 96 09/06/16 10:44 98.8 F 93 19 115/72 98 Intake and Output 09/06/16 09/07/16 09/07/16 22:59 06:59 14:59 Output Total 450 250 Balance -450 -250 Output: Urine 450 250 Uretheral (Crum) 250 Other: # Voids 1 - Exam Lungs: bilateral: normal Chest: Normal S1, Normal S2 Extremities: Present: normal Abdomen: Present: normal appearance, soft. Absent: distention, tenderness Incision: Present: normal, dry, intact Uterus: Present: normal, firm - Labs Labs: Abnormal Lab Results - Last 24 Hours (Table) 09/06/16 09/07/16 Range/Units 10:54 06:27 WBC 11.5 H (3.8-10.6) k/uL RBC 3.56 L (3.80-5.40) m/uL Hgb 10.6 L (11.4-16.0) gm/dL Hct 31.2 L (34.0-46.0) % Neutrophils # 8.7 H (1.3-7.7) k/uL
[2016-09-07] MEDS: Acetaminophen-Codeine 300-30mg TAB PO PRN ×2 (17:03→21:43)
[2016-09-07] MEDS: LACTATED RINGERS 1,000 ML IV SCH ×6 (20:27→22:36)
[2016-09-08] MEDS: Acetaminophen-Codeine 300-30mg TAB PO PRN (05:08)
--- NOTE | 2016-09-08 08:19 | P.DS ---
Providers Date of admission: 09/06/16 10:03 Expected date of discharge: 09/08/16 Attending physician: Eulogio Campbell Primary care physician: Seven Mcmanus - Discharge Diagnosis(es) (1) Status post repeat low transverse section Current Visit: Yes Status: Acute Hospital Course: Patient presented for repeat low transverse and underwent this procedure without complication. Her postoperative course was uncomplicated. She is tolerating regular diet passing flatus and ambulating without difficulty. Her pain is well-controlled. Her incision is clean, dry, intact. Denies nausea, vomiting, chest pain, shortness of breath or calf pain. She'll be discharged home postoperative day #2 in stable condition to follow-up with Dr. Choe in 1 week. Plan - Discharge Summary New Discharge Prescriptions: New Acetaminophen-Codeine 300-30mg [Tylenol #3] 1 tab PO Q4H PRN #30 tablet PRN Reason: Pain Ibuprofen [Motrin] 600 mg PO Q6HR PRN #30 tab PRN Reason: Pain No Action Albuterol Inhaler [Ventolin Hfa Inhaler] 1 - 2 puff INHALATION RT-Q6H PRN PRN Reason: ASTHMA Pnv,Calcium 72/Iron/Folic Acid [ Plus Tablet] 1 tab PO DAILY Cephalexin [Keflex] 500 mg PO QID Discharge Medication List Albuterol Inhaler [Ventolin Hfa Inhaler] 1 - 2 puff INHALATION RT-Q6H PRN [History] Pnv,Calcium 72/Iron/Folic Acid [ Plus Tablet] 1 tab PO DAILY 07/18/16 [ History] Cephalexin [Keflex] 500 mg PO QID 09/04/16 [History] Acetaminophen-Codeine 300-30mg [Tylenol #3] 1 tab PO Q4H PRN #30 tablet [Rx] Ibuprofen [Motrin] 600 mg PO Q6HR PRN #30 tab 09/07/16 [Rx] Follow up Appointment(s)/Referral(s): Eulogio Campbell DO [Doctor of Osteopathic Medicine] - 1 Week Activity/Diet/Wound Care/Special Instructions: No heavy lifting, limit stairs and driving and pelvic rest. If any high temperatures, heavy bleeding, or severe pain call my office Discharge Disposition: HOME SELF-CARE
[2016-09-08] MEDS: SENNOSIDES-DOCUSATE SODIUM 1 EACH TAB PO SCH (08:48)
[2016-09-08 10:46] VITALS: BP 129/65; PULSE 84; RESP 16; TEMP 97.9
[2016-09-08] MEDS ORDERED: KETOROLAC 30 MG/ML 1 ML VIAL ONE (13:23)
[2016-09-08] MEDS ORDERED: MORPHINE SULFATE (PF) 0.3 MG/0.3 ML SYR ONE (13:23)
[2016-09-08] MEDS ORDERED: NALBUPHINE 10 MG/ML AMPUL ONE (13:23)
[2016-09-08] MEDS ORDERED: ONDANSETRON 4 MG/2 ML VIAL ONE (13:23)
[2016-09-08] MEDS ORDERED: ePHEDrine 50 MG/ML 1 ML AMP ONE (13:23)
[2016-09-08] MEDS ORDERED: OXYTOCIN 10 UNIT/ML 1 ML VIAL ONE (13:23)
== END 2016-09-08 14:15 | disposition home or self-care (01) | DRG 765 ==
LOC: 4FBP 10:03
PROVIDERS: ADMIT Obstetrics & Gynecology; ATTEND Obstetrics & Gynecology
PROC: 10D00Z1 Extraction of Products of Conception, Low, Open Approach (ICD-10-PCS; principal; 2016-09-06 13:38)
DX: O34.211 Maternal care for low transverse scar from previous cesarean delivery (principal); N39.0 Urinary tract infection, site not specified; O23.43 Unspecified infection of urinary tract in pregnancy, third trimester; F17.200 Nicotine dependence, unspecified, uncomplicated; O99.334 Smoking (tobacco) complicating childbirth; Z37.0 Single live birth; Z3A.39 39 weeks gestation of pregnancy; O99.52 Diseases of the respiratory system complicating childbirth; J45.909 Unspecified asthma, uncomplicated; O99.62 Diseases of the digestive system complicating childbirth; K21.9 Gastro-esophageal reflux disease without esophagitis; Z79.899 Other long term (current) drug therapy
CPT/HCPCS: 85025; 86850; 86870; 86880; 86886; 86900; 86901; 88307

== ENCOUNTER → 2020-04-02 | Outpatient (CLI) | payer OTHER ==
--- NOTE | 2020-04-02 23:15 | MR ---
EXAMINATION TYPE: MR cervical spine wo con DATE OF EXAM: 04/02/2020 COMPARISON: None HISTORY: MS follow-up. Numbness. TECHNIQUE: The planar multiecho imaging of the cervical spine was performed without contrast. Cervical vertebra have normal alignment. Disc spaces are fairly normal. There is no spinal stenosis. There is no evidence of cervical disc herniation. There is no compression fracture. There is normal signal pattern in the cervical spinal cord. There is no edema. There is no evidence o f cervical spinal cord mass. The brainstem is intact. The visualized cerebellum is intact. I see no bony destructive process. IMPRESSION: Negative MR scan of the cervical spine. No evidence of cervical disc herniation or spinal stenosis. N o fracture. No evidence of demyelinating disease.
--- NOTE | 2020-04-02 23:23 | MR ---
EXAMINATION TYPE: MR brain wo/w con DATE OF EXAM: 04/02/2020 COMPARISON: None HISTORY: Follow-up Demyelinating disease CONTRAST: Standard multiplanar, multisequence MRI departmental protocol utilizing mL intravenous gadolinium con trast. Ventricles have normal size. There is no mass effect nor midline shift. There is no sign of intracran ial hemorrhage. Diffusion images show rounded 12 mm high signal focus in the left parietal lobe at th e walter-white matter junction. There is a 2 x 1 cm linear area of increased signal in the left centrum semiovale on the T2 and FLAIR images.. There is 12 mm rounded focus of increased signal on the T2 an d FLAIR images in the right centrum semiovale in same location as the diffusion image abnormality. The brainstem is intact. There is a subtle 5 mm area of increased signal within the posterior corpus callosum on the T2 and FLAIR sagittal images. There is normal enhancement of the venous sinuses. I see no pathologic enhancement. The sella turcica appears normal. Cerebellum appears normal. IMPRESSION: Bilateral white matter large lesions consistent with demyelinating disease. The old exam from 4 is not available for comparison but according to the report there is probably not an adverse change since the old exam. No evidence of a cortical infarct.
== END | disposition home or self-care (01) ==
LOC: RADMRIMAIN 16:32
PROVIDERS: ATTEND Psychiatry & Neurology Neurology
DX: G93.89 Other specified disorders of brain (principal); G35 Multiple sclerosis
CPT/HCPCS: 70553; 72141; A9585